=== PATIENT | male | born 1985 | race Caucasian/White ===

== ENCOUNTER 2023-10-13 13:30 | Inpatient (IN) | payer BC ==
[2023-10-13 14:03] VITALS: BMI 21.3
[2023-10-13] MEDS ORDERED: DICYCLOMINE HCL 10 MG CAPSULE PO PRN (15:30)
[2023-10-13] MEDS ORDERED: POLYETHYLENE GLYCOL (HEALTHYLAX) 3350 17 GM PACKET PO PRN (15:30)
[2023-10-13] MEDS ORDERED: NALOXONE HCL (KLOXXADO) 8 MG SPRAY NS PRN (15:30)
[2023-10-13] MEDS ORDERED: ACETAMINOPHEN 325 MG TABLET (FP) PO PRN (15:30)
[2023-10-13] MEDS ORDERED: NALOXONE HCL 0.4 MG/ML VIAL IM PRN (15:30)
[2023-10-13] MEDS ORDERED: LOPERAMIDE HCL 2 MG CAPSULE PO PRN (15:30)
[2023-10-13] MEDS ORDERED: LORazepam 2 MG TABLET PO ONE (15:30)
[2023-10-13] MEDS ORDERED: ONDANSETRON *ODT* 4 MG TABLET SL PRN (15:30)
[2023-10-13] MEDS ORDERED: MAG HYDROX/AL HYDROX/SIMETH 30 ML UNIT-DOSE CUP PO PRN (15:30)
[2023-10-13] MEDS ORDERED: MAGNESIUM HYDROX 2400MG/30ML ORAL SUSPENSION 30 ML CUP PO PRN (15:30)
[2023-10-13] MEDS ORDERED: IBUPROFEN 400 MG TABLET (FP) PO PRN (15:30)
[2023-10-13] MEDS ORDERED: BENZOCAINE/MENTHOL (CHLORASEPTIC ) LOZENGE MM PRN (15:30)
[2023-10-13] MEDS ORDERED: BISMUTH SUBSALICYLATE 524 MG/30 ML PO PRN (15:30)
[2023-10-13] MEDS ORDERED: BENZONATATE 200 MG CAPSULE PO PRN (15:30)
[2023-10-13] MEDS: PRENATAL VITAMINS W/ FOLIC ACID TABLET (FP) PO SCH (16:30)
[2023-10-13] MEDS: NICOTINE 21 MG/24 HOURS TOPICAL PATCH TD SCH (16:30)
[2023-10-13] MEDS ORDERED: NICOTINE 21 MG/24 HOURS TOPICAL PATCH ONE (17:11)
[2023-10-13] MEDS ORDERED: LORazepam 2 MG TABLET ONE (17:12)
[2023-10-13] MEDS: METHOCARBAMOL 500 MG TABLET PO PRN (18:00)
[2023-10-13] MEDS: LORazepam 2 MG TABLET PO SCH ×2 (18:15→22:36)
[2023-10-13] MEDS: LORazepam 1 MG TABLET PO PRN (19:21)
[2023-10-13] MEDS: THIAMINE HCL 100 MG TABLET (FP) PO SCH (22:36)
[2023-10-13] MEDS: MELATONIN 5 MG TABLETS PO SCH (22:36)
[2023-10-13] MEDS: hydrOXYzine PAMOATE 25 MG CAPSULE (FP) PO PRN (22:36)
[2023-10-14] MEDS: LORazepam 2 MG TABLET PO SCH ×4 (05:53→22:14)
[2023-10-14] MEDS: hydrOXYzine PAMOATE 25 MG CAPSULE (FP) PO PRN ×2 (05:55→17:30)
[2023-10-14] MEDS: ARIPiprazole 10 MG TABLET PO SCH (10:23)
[2023-10-14] MEDS: PRENATAL VITAMINS W/ FOLIC ACID TABLET (FP) PO SCH (10:25)
[2023-10-14] MEDS: GABAPENTIN 400 MG CAPSULE PO SCH ×2 (10:26→22:13)
[2023-10-14] MEDS: QUEtiapine FUMARATE 50 MG TABLET PO SCH (10:26)
[2023-10-14] MEDS: NICOTINE 21 MG/24 HOURS TOPICAL PATCH TD SCH (10:26)
[2023-10-14] MEDS ORDERED: BUPRENORPHINE/NALOXONE 8 MG/2 MG FILM PACKET SL ONE (11:15)
[2023-10-14 11:26] LABS: HEMATOCRIT 42.9 % (35.4-49); HEMOGLOBIN 14.1 GM/dL (11.7-16.9); MCH 29.2 pg (25.7-33.7); MCHC 32.9 g/dl (32.0-35.9); MEAN CELL VOLUME 88.8 fl (80-96); MEAN PLT VOLUME 9.3 fl (7.5-11.1); PLATELET COUNT 275 10^3/uL (134-434); RBC 4.83 M/mm3 (4.00-5.60); RDW 13.7 % (11.9-15.9)
[2023-10-14 11:35] LABS: POTASSIUM 4.3 mmol/L (3.5-5.1)
[2023-10-14 11:40] LABS: BLOOD UREA NITROGEN 10.5 mg/dL (7-18)
[2023-10-14 11:43] LABS: CREATININE 0.9 mg/dL (0.55-1.3)
[2023-10-14 11:45] LABS: BILIRUBIN,TOTAL 0.5 mg/dL (0.2-1); TOT PROT 7.4 g/dl (6.4-8.2)
[2023-10-14] MEDS: busPIRone HCL 5 MG TABLET PO SCH ×2 (14:11→22:13)
[2023-10-14] MEDS: LORazepam 1 MG TABLET PO PRN ×2 (14:17→19:20)
[2023-10-14] MEDS: METHOCARBAMOL 500 MG TABLET PO PRN (17:29)
[2023-10-14] MEDS: guaiFENesin 600 MG TABLET.ER (FP) PO PRN (20:01)
[2023-10-14] MEDS: IBUPROFEN 600 MG TABLET (FP) PO PRN (20:01)
[2023-10-14] MEDS: MELATONIN 5 MG TABLETS PO SCH (22:13)
[2023-10-14] MEDS: THIAMINE HCL 100 MG TABLET (FP) PO SCH (22:13)
[2023-10-15] MEDS: LORazepam 1 MG TABLET PO PRN ×2 (01:33→13:12)
[2023-10-15] MEDS: LORazepam 1 MG TABLET PO SCH ×4 (06:00→23:05)
[2023-10-15] MEDS: busPIRone HCL 5 MG TABLET PO SCH ×3 (07:00→23:04)
[2023-10-15] MEDS: QUEtiapine FUMARATE 50 MG TABLET PO SCH (09:10)
[2023-10-15] MEDS: GABAPENTIN 400 MG CAPSULE PO SCH ×2 (09:10→23:04)
[2023-10-15] MEDS: hydrOXYzine PAMOATE 25 MG CAPSULE (FP) PO PRN (09:10)
[2023-10-15] MEDS: METHOCARBAMOL 500 MG TABLET PO PRN ×2 (09:10→23:04)
[2023-10-15] MEDS: ARIPiprazole 10 MG TABLET PO SCH (09:10)
[2023-10-15] MEDS: PRENATAL VITAMINS W/ FOLIC ACID TABLET (FP) PO SCH (09:11)
[2023-10-15] MEDS: NICOTINE 21 MG/24 HOURS TOPICAL PATCH TD SCH (09:12)
[2023-10-15] MEDS: BUPRENORPHINE/NALOXONE 8 MG/2 MG FILM PACKET SL SCH (09:12)
[2023-10-15] MEDS: guaiFENesin 600 MG TABLET.ER (FP) PO PRN (17:24)
[2023-10-15] MEDS: THIAMINE HCL 100 MG TABLET (FP) PO SCH (23:04)
[2023-10-15] MEDS: MELATONIN 5 MG TABLETS PO SCH (23:05)
[2023-10-16] MEDS ORDERED: LORazepam 0.5 MG TABLET PO PRN
[2023-10-16] MEDS: LORazepam 0.5 MG TABLET PO SCH ×4 (05:40→23:21)
[2023-10-16] MEDS: busPIRone HCL 5 MG TABLET PO SCH ×3 (05:41→22:10)
[2023-10-16] MEDS: ARIPiprazole 10 MG TABLET PO SCH (09:06)
[2023-10-16] MEDS: METHOCARBAMOL 500 MG TABLET PO PRN ×2 (09:06→17:15)
[2023-10-16] MEDS: hydrOXYzine PAMOATE 25 MG CAPSULE (FP) PO PRN ×2 (09:06→17:14)
[2023-10-16] MEDS: PRENATAL VITAMINS W/ FOLIC ACID TABLET (FP) PO SCH (09:06)
[2023-10-16] MEDS: GABAPENTIN 400 MG CAPSULE PO SCH ×2 (09:06→22:10)
[2023-10-16] MEDS: QUEtiapine FUMARATE 50 MG TABLET PO SCH (09:06)
[2023-10-16] MEDS: BUPRENORPHINE/NALOXONE 8 MG/2 MG FILM PACKET SL SCH (09:07)
[2023-10-16] MEDS: NICOTINE 21 MG/24 HOURS TOPICAL PATCH TD SCH (09:09)
[2023-10-16] MEDS: IBUPROFEN 600 MG TABLET (FP) PO PRN (14:04)
[2023-10-16 21:30] VITALS: TEMP 97.6
[2023-10-16] MEDS: MELATONIN 5 MG TABLETS PO SCH (22:10)
[2023-10-16] MEDS: THIAMINE HCL 100 MG TABLET (FP) PO SCH (22:10)
[2023-10-17] MEDS ORDERED: LORazepam 0.5 MG TABLET PO ONE (05:00)
[2023-10-17] MEDS: busPIRone HCL 5 MG TABLET PO SCH (05:59)
[2023-10-17] MEDS: IBUPROFEN 600 MG TABLET (FP) PO PRN (06:22)
[2023-10-17 07:15] VITALS: BP 100/60; PULSE 57; RESP 18
== END 2023-10-17 08:56 | disposition home or self-care (01) | DRG 773 ==
LOC: YASAS 13:30 → Y6N 17:08
PROVIDERS: ADMIT Allergy & Immunology; ATTEND Surgery
PROC: HZ2ZZZZ Detoxification Services for Substance Abuse Treatment (ICD-10-PCS; principal; 2023-10-13)
DX: F13.230 Sedative, hypnotic or anxiolytic dependence with withdrawal, uncomplicated (principal); F11.20 Opioid dependence, uncomplicated; F14.20 Cocaine dependence, uncomplicated; F12.20 Cannabis dependence, uncomplicated; F17.210 Nicotine dependence, cigarettes, uncomplicated; F25.1 Schizoaffective disorder, depressive type; F19.282 Other psychoactive substance dependence with psychoactive substance-induced sleep disorder; F19.280 Other psychoactive substance dependence with psychoactive substance-induced anxiety disorder; F19.24 Other psychoactive substance dependence with psychoactive substance-induced mood disorder; F31.9 Bipolar disorder, unspecified; M54.30 Sciatica, unspecified side; M50.20 Other cervical disc displacement, unspecified cervical region; M51.26 Other intervertebral disc displacement, lumbar region; Z28.310 Unvaccinated for COVID-19; Z28.9 Immunization not carried out for unspecified reason; Z88.8 Allergy status to other drugs, medicaments and biological substances
CPT/HCPCS: 36415; 80053; 85027; 86780; 87635; 93005; 93010